=== PATIENT | male | born 2000 | race Two or more races ===

== ENCOUNTER 2022-05-10 10:44 | Emergency (ER) | payer OTHER ==
[~2022-05-10] VITALS: Ht 170.2 cm; Wt 65.8 kg
[2022-05-10] MEDS ORDERED: CLEOCIN HCL300 MG PO (11:26)
[2022-05-10] MEDS ORDERED: MUPIROCIN15 GM TOP (11:26)
== END 2022-05-10 12:33 | disposition home or self-care (01) ==
LOC: EMR PED 10:44 → ER 10:44 → EMR PED 10:50
DX: H60.12 Cellulitis of left external ear (principal)